=== PATIENT | female | born 1950 | race Caucasian/White ===

== ENCOUNTER 2017-01-02 13:43 | Emergency (ER) | payer MEDICARE, OTHER ==
[~2017-01-02] VITALS: Ht 160 cm; Wt 93.0 kg
[2017-01-02] MEDS ORDERED: LIDOCAINE/EPINEPHRINE 1% 1:100,000 (XYLOCAINE) 30 ML VIAL INJ ONE (13:55)
[2017-01-02] MEDS ORDERED: METF850T2 PO (14:06)
[2017-01-02] MEDS ORDERED: INSU100I9 SQ (14:06)
[2017-01-02] MEDS ORDERED: INSU100I10 SQ (14:06)
[2017-01-02] MEDS ORDERED: ALPR.25T PO (14:06)
[2017-01-02] MEDS ORDERED: LEVO75TA6 PO (14:06)
[2017-01-02] MEDS ORDERED: ASPI-860 PO (14:06)
[2017-01-02] MEDS ORDERED: VENL150C53 PO (14:06)
[2017-01-02] MEDS: BACITRACIN OINTMENT 0.9 GM PACKET TOP ONE (14:10)
[2017-01-02] MEDS: TETANUS, DIPTHERIA, PERTUSSIS (ADACELL) VACCINE 0.5 ML VIAL IM ONE (14:10)
[2017-01-02] MEDS ORDERED: LIDOCAINE 1% (XYLOCAINE) 20 ML VIAL ONE (14:18)
[2017-01-02] MEDS: LIDOCAINE 1% (XYLOCAINE) 20 ML VIAL INJ ONE (14:57)
[2017-01-02 15:53] VITALS: BP 132/76
== END 2017-01-02 15:57 | disposition home or self-care (01) ==
LOC: ED 13:46
DX: S01.81XA Laceration without foreign body of other part of head, initial encounter (principal); W01.198A Fall on same level from slipping, tripping and stumbling with subsequent striking against other object, initial encounter; Y93.89 Activity, other specified; Y92.89 Other specified places as the place of occurrence of the external cause
CPT/HCPCS: 12013; 12052; 90471; 90715; 99283; A9270